=== PATIENT | male | born 2000 | race African-American/Black ===

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

== ENCOUNTER 2022-01-14 14:12 | Emergency (ER) | payer OTHER, SELFPAY ==
[2022-01-14 14:25] VITALS: BP 115/71; PULSE 66; RESP 16; TEMP 36.3; O2SAT 99
--- NOTE | 2022-01-14 15:04 | ED.GENADULT ---
HPI - General Adult General Chief complaint: Urogenital-Male Stated complaint: std testing Time Seen by Provider: 01/14/22 15:04 Source: patient Mode of arrival: ambulatory Limitations: no limitations History of Present Illness HPI narrative: 21-year-old male patient presents to the [facility] with complaints of burning with urination for the past 2 days. Patient states he last had sexual intercourse with his on and off girlfriend about a week ago. Patient states they were broken up for some time so he is not sure if maybe he would have gotten an STD from her. Patient states he has had an STD before. Patient denies any discharge coming from the penis. Denies any scrotal pain. Denies any fevers, body aches or chills. Denies any lesions to the penis. Related Data Allergies Allergy/AdvReac Type Severity Reaction Status Date / Time No Known Allergies Allergy Verified 01/14/22 14:22 Review of Systems Review of Systems: CONSTITUTIONAL: Denies fever, chills, or sweats. EYES: Denies visual changes, redness, or discharge. ENT: Denies rhinorrhea, congestion, sore throat, or otalgia. CARDIOVASCULAR: Denies chest pain, palpitations, or edema. RESPIRATORY: Denies cough or dyspnea. GASTROINTESTINAL: Denies abdominal pain, nausea, vomiting, or diarrhea. GENITOURINARY: Denies dysuria or hematuria. Pain with urination x2 days SKIN: Denies rash or itching. MUSCULOSKELETAL: Denies back pain, joint pain, or myalgia. NEUROLOGIC: Denies headache, numbness, or weakness. PSYCHIATRIC: Denies anxiety or depression. [facility] Past Medical History Medical History Fracture of phalanx of right little finger Surgical History Surgical History No history of previous surgery Social History Social History Smoking status: Never smoker Alcohol intake: current Alcohol use details: rare social Substance use: current Substance use type: marijuana Gender identity (if verbalized by the patient): Male Comments At the time of my signature I agree with nursing past medical history, surgical, social, and family history. There is no relevant family history pertinent to the presenting complaint. Exam Narrative: GENERAL: Well-appearing, well-nourished, and in no acute distress. HEAD: Normocephalic, atraumatic. EYES: PERRLA and EOMI. ENT: Nares clear, no rhinorrhea or epistaxis. Mucous membranes moist. NECK: Supple. No lymphadenopathy CHEST: Clear to auscultation. No respiratory distress. HEART: Regular rate and rhythm. No murmur heard. Normal peripheral pulses. ABDOMEN: Soft, nontender, nondistended, normal active bowel sounds. EXTREMITIES: Normal range of motion. No edema. SKIN: Warm, dry, no rash. NEURO: No focal deficits. Alert and oriented x3. Course Course Level of Care: Express Care Visit Vital Signs Vital signs: Vital Signs Temperature 36.3 C L 01/14/22 14:25 Pulse Rate 66 01/14/22 14:25 Respiratory Rate 16 01/14/22 14:25 Blood Pressure 115/71 01/14/22 14:25 Pulse Oximetry 99 01/14/22 14:25 Oxygen Delivery Room Air 01/14/22 14:25 Temperature 36.3 C L 01/14/22 14:25 Pulse Rate 66 01/14/22 14:25 Respiratory Rate 16 01/14/22 14:25 Blood Pressure 115/71 01/14/22 14:25 Pulse Oximetry 99 01/14/22 14:25 Oxygen Delivery Room Air 01/14/22 14:25 Vital signs reviewed. Medical Decision Making MDM Narrative Medical decision making narrative: Plan of care for patient is to obtain urine specimen and send off to lab for testing of gonorrhea, chlamydia and trichomonas. Since patient is having symptoms we will go ahead and start treatment today. Discussed with patient he should not engage in any sexual activities for the next 7 days after receiving medication. Discussed with patient that I highly recommend that he put use safe sex pra
[2022-01-14] MEDS: cefTRIAXone 500 MG, LIDOCAINE HCL 1% LOCAL INJ 1 ML IM (15:21)
== END 2022-01-14 15:45 | disposition home or self-care (01) ==
PROVIDERS: Emergency Provider Nurse Practitioner Family
DX: R30.0 Dysuria (principal); Z11.3 Encounter for screening for infections with a predominantly sexual mode of transmission
CPT/HCPCS: 81003; 87491; 87591; 87661; 96372; 99213; G0463; J0696

== ENCOUNTER 2022-11-14 09:49 | Emergency (ER) | payer OTHER, SELFPAY ==
[2022-11-14 09:57] VITALS: BP 124/63; PULSE 66; RESP 16; TEMP 36.4; O2SAT 100
[2022-11-14 09:58] VITALS: BP 124/63; PULSE 66; RESP 16; TEMP 36.4; O2SAT 100
--- NOTE | 2022-11-14 10:22 | ED.GENADULT ---
HPI - General Adult General Chief complaint: Upper Respiratory Infection Stated complaint: throat pain,throwing up Source: patient and RN notes reviewed History of Present Illness HPI narrative: 22-year-old male presents to urgent care with complaints of a sore throat x2 days. Patient states he also vomited 4 times this morning. Patient states the last time he vomited he noticed blood in his emesis. Patient is also reporting slight, bilateral, side pain. Denies any fevers, chills, chest pain, shortness of breath, ear pain congestion, abdominal pain, or dysuria. Patient is taking DayQuil at home. Related Data Home Medications Medication Instructions Recorded Confirmed hydroxyzine HCl 25 mg tablet mg 11/14/22 Allergies Allergy/AdvReac Type Severity Reaction Status Date / Time No Known Allergies Allergy Verified 11/14/22 09:58 Review of Systems Review of Systems: Pertinent positives and pertinent negatives per HPI. [facility], [facility] Past Medical History Medical History Fracture of phalanx of right little finger Surgical History Surgical History No history of previous surgery Social History Social History Smoking status: Never smoker Alcohol intake: current Alcohol use details: rare social Substance use: current Substance use type: marijuana Living arrangements: with family Gender identity (if verbalized by the patient): Male Comments At the time of my signature, I reviewed and agree with the nursing past medical, surgical, social, and family history. There is no relevant family history pertinent to the patient complaint. Exam Narrative: GENERAL: This is a well-nourished, well-developed patient, in no apparent distress. HEAD: normocephalic, atraumatic. EYES: Sclera clear/white. Vision is grossly intact. EARS: External ears normal, auditory canals clear and without drainage. Hearing grossly intact. NOSE: External nose normal with no obvious nasal discharge, nares without redness, no rhinorrhea. THROAT: Mucous membranes moist, posterior pharynx clear. NECK: Neck supple, non-tender without lymphadenopathy, masses or thyromegaly. CARDIOVASCULAR: Regular rate and rhythm without murmurs, gallops, or rubs. RESPIRATORY: Clear to auscultation. Breath sounds equal bilaterally. No wheezes, rales, or rhonchi. GASTROINTESTINAL: Abdomen soft, non-tender, nondistended. Bowel sounds are active. No hepato-splenomegaly, or palpable masses. No guarding. SKIN: warm, intact with no suspicious lesions or rash, good texture and turgor. NEURO: awake, alert, and oriented to person, place and time. There were no obvious focal neurologic abnormalities. EXTREMITIES: No clubbing, cyanosis, or edema. No joint tenderness, effusion, or edema noted. BACK: Nontender without deformity or crepitus. No flank tenderness. Course Course Level of Care: Express Care Visit Vital Signs Vital signs: Vital Signs Temperature 97.6 F 11/14/22 09:57 Pulse Rate 66 11/14/22 09:57 Respiratory Rate 16 11/14/22 09:57 Blood Pressure 124/63 11/14/22 09:57 Pulse Oximetry 100 11/14/22 09:57 Oxygen Delivery Room Air 11/14/22 09:57 Temperature 97.6 F 11/14/22 09:58 Pulse Rate 66 11/14/22 09:58 Respiratory Rate 16 11/14/22 09:58 Blood Pressure 124/63 11/14/22 09:58 Pulse Oximetry 100 11/14/22 09:58 Oxygen Delivery Room Air 11/14/22 09:58 reviewed Medical Decision Making MDM Narrative Medical decision making narrative: Rapid strep is negative in the office; however we will send to the lab for confirmation; there is a small percentage chance that it can come back positive; if it is, we will call you in 2-3days; and your prescription will be call in to your pharmacy. However, there is NO indication for antibiotic at this time. -Inc
== END 2022-11-14 10:27 | disposition home or self-care (01) ==
PROVIDERS: Emergency Provider Nurse Practitioner Family; PCP Emergency Medicine
DX: J02.9 Acute pharyngitis, unspecified (principal); A08.4 Viral intestinal infection, unspecified; F12.90 Cannabis use, unspecified, uncomplicated
CPT/HCPCS: 81003; 87081; 87880; 99213; G0463

== ENCOUNTER 2024-04-02 16:32 | Emergency (ER) | payer BC, SELFPAY ==
[2024-04-02 16:41] VITALS: BP 125/61; PULSE 75; RESP 16; TEMP 36.7; O2SAT 99
--- NOTE | 2024-04-02 16:55 | ED_ITS ---
HPI - Wound/Laceration General Chief Complaint: Wound/Laceration Stated Complaint: stitches 4 days ago, one of stitches came out toda Time Seen by Provider: 04/02/24 16:55 Source: patient Mode of arrival: ambulatory Limitations: no limitations History of Present Illness HPI narrative: 24 yo M here for wound check. Pt had sutures placed to laceration of L hand 4 days ago. One suture fell out. States other sutures seem too spaced out, wound opening and sutures look like they may fall out. No signs of infection. ROM and distal NV intact. Cut himself with knife when opening package. All systems reviewed and negative except as noted above. Related Data Home Medications ?Medication ?Instructions ?Recorded ?Confirmed ?Last Taken ?Type cephalexin 500 mg capsule mg 04/02/24 Unknown History naproxen 500 mg tablet mg 04/02/24 Unknown History Allergies Allergy/AdvReac Type Severity Reaction Status Date / Time No Known Allergies Allergy Verified 04/02/24 16:38 Review of Systems Review of Systems: CONSTITUTIONAL: Denies fever, chills, or sweats. EYES: Denies visual changes, redness, or discharge. ENT: Denies rhinorrhea, congestion, sore throat, or otalgia. CARDIOVASCULAR: Denies chest pain, palpitations, or edema. RESPIRATORY: Denies cough or dyspnea. GASTROINTESTINAL: Denies abdominal pain, nausea, vomiting, or diarrhea. GENITOURINARY: Denies dysuria or hematuria. SKIN: Denies rash or itching. laceration to left hand. MUSCULOSKELETAL: Denies back pain, joint pain, or myalgia. NEUROLOGIC: Denies headache, numbness, or weakness. PSYCHIATRIC: Denies anxiety or depression. All other systems reviewed are negative, except as documented in HPI. [facility] Past Medical History Medical History Fracture of phalanx of right little finger Surgical History Surgical History No history of previous surgery Social History Social History Smoking status: Never smoker Alcohol intake: current Alcohol use details: rare social Substance use: current Substance use type: marijuana Living arrangements: with family Gender identity (if verbalized by the patient): Male Comments At time of signature, agree with nursing past medical, surgical, social and family history. There is no relevant family history pertinent to the presenting complaint. Exam Narrative: GENERAL: This is a well-nourished, well-developed patient, in no apparent distress. HEAD: normocephalic, atraumatic. EYES: PERRL. Sclera clear/white. Vision is grossly intact. EARS: External ears normal NOSE: External nose normal NECK: Neck supple, non-tender without lymphadenopathy, masses or thyromegaly. CARDIOVASCULAR: Regular rate and rhythm without murmurs, gallops, or rubs. RESPIRATORY: Clear to auscultation. Breath sounds equal bilaterally. No wheezes, rales, or rhonchi. SKIN: warm, Dry, with no suspicious lesions or rash, good texture and turgor. healing laceration to posterior L hand, 1st metacarpal. sutures are spaced far apart with some wound dehiscence. NEURO: awake, alert, and oriented to person, place and time. There were no obvious focal neurologic abnormalities. EXTREMITIES: No joint tenderness, effusion, or edema noted. Course Course Level of Care: Express Care Visit Vital Signs Vital signs: Vital Signs Temperature 36.7 C 04/02/24 16:41 Pulse Rate 75 04/02/24 16:41 Respiratory Rate 16 04/02/24 16:41 Blood Pressure 125/61 04/02/24 16:41 Pulse Oximetry 99 04/02/24 16:41 Oxygen Delivery Room Air 04/02/24 16:41 Temperature 36.7 C 04/02/24 16:41 Pulse Rate 75 04/02/24 16:41 Respiratory Rate 16 04/02/24 16:41 Blood Pressure 125/61 04/02/24 16:41 Pulse Oximetry 99 04/02/24 16:41 Oxygen Delivery Room Air 04/02/24 16:41 Reviewed Procedures Laceration Laceration 1: Date: 04/02/24 Time: 17:00 Site: hand Side (If applicable): left Description: linear ====== Skin Level ====== Skin layer closed with: steri strips ====== Subcutaneous Layer ====== ====== Muscle Layer ====== ====== Tendon Layer ====== Dressing: a steri strip was placed where suture fell out and then between each suture to help with wound dehiscence. no signs of infection. MDM - Wound/Laceration MDM Narrative Medical decision making narrative: Patient is aware of diagnosis, understands and agrees to treatment plan. Anticipatory guidance given. Patient agrees to follow-up as directed and is aware of reasons to seek care at the emergency department. Portions of this record may have been created with voice recognition software Discharge Plan Discharge Clinical Impression: Laceration of hand, left Patient Disposition: Home, Self-Care Condition: Stable Instructions: Steristrips (ED) Additional Instructions: Keep steri strips clean and dry. If they become wet, pat dry with towel. Let them fall off on their own. Do not pick or pull at strips. Patient Language: Japanese Prescriptions: No Action cephalexin 500 mg capsule naproxen 500 mg tablet Follow-up/Referrals: Esvin Ervin MD [Primary Care Provider] - Time of Disposition: 17:08
== END 2024-04-02 17:15 | disposition home or self-care (01) ==
PROVIDERS: Emergency Provider Nurse Practitioner Family; PCP Emergency Medicine
DX: S61.412D Laceration without foreign body of left hand, subsequent encounter (principal); W26.0XXA Contact with knife, initial encounter; T81.30XA Disruption of wound, unspecified, initial encounter; L76.82 Other postprocedural complications of skin and subcutaneous tissue; F12.90 Cannabis use, unspecified, uncomplicated
CPT/HCPCS: 99212; G0463

== ENCOUNTER 2024-04-09 13:54 | Emergency (ER) | payer BC, SELFPAY ==
[2024-04-09 14:07] VITALS: BP 122/61; PULSE 72; RESP 16; TEMP 37; O2SAT 99
--- NOTE | 2024-04-09 14:10 | ED.WOUNDLAC ---
HPI - Wound/Laceration General Chief Complaint: Wound/Laceration Stated Complaint: suture removal Time Seen by Provider: 04/09/24 14:24 Source: patient and RN notes reviewed Mode of arrival: ambulatory Limitations: no limitations History of Present Illness HPI narrative: 24-year-old male presents concern for suture removal. Reports he had a laceration on left hand 11 days ago which she had sutures placed at [facility]. He reports he followed up [facility]. He denies any my redness, warmth, drainage from the incision, reports that it is healing well. He does reports some tingling in his thumb that he has a follow-up at [facility] for. Related Data Home Medications ?Medication ?Instructions ?Recorded ?Confirmed ?Last Taken ?Type cephalexin 500 mg capsule mg 04/02/24 Unknown History naproxen 500 mg tablet mg 04/02/24 Unknown History Allergies Allergy/AdvReac Type Severity Reaction Status Date / Time No Known Allergies Allergy Verified 04/02/24 16:38 Review of Systems Review of Systems: CONSTITUTIONAL: Denies malaise, chills, sweats, or fever. SKIN: Reports healing laceration to the left hand MUSCULOSKELETAL: Denies myalgia. NEUROLOGIC: Denies headache. Reports some tingling in the left 1st digit All systems reviewed & are unremarkable except as noted in HPI and below PMFSH Past Medical History Medical History Fracture of phalanx of right little finger Surgical History Surgical History No history of previous surgery Social History Social History Smoking status: Never smoker Alcohol intake: current Alcohol use details: rare social Substance use: current Substance use type: marijuana Living arrangements: with family Gender identity (if verbalized by the patient): Male Comments At time of signature, agree with nursing past medical, surgical, social and family history. There is no relevant family history pertinent to the presenting complaint Exam Narrative: GENERAL: Well-appearing, well-nourished, and in no acute distress. HEAD: Normocephalic, atraumatic. EYES: PERRLA, conjunctivae clear, and EOMI. ENT: Mucous membranes moist. NECK: Supple. No lymphadenopathy CHEST: Clear to auscultation. No respiratory distress. HEART: Regular rate and rhythm. SKIN: Warm, dry. Healed laceration to the left hand with 3 intact sutures NEURO: Alert and oriented x3. PSYCH: Normal mood and affect Course Course Emergency Course: Patient is aware of diagnosis, understands and agrees to treatment plan. Anticipatory guidance given. Patient agrees to follow-up as directed and is aware of reasons to seek care at the emergency department. Portions of this record may have been created with voice recognition software Level of Care: Express Care Visit Vital Signs Vital signs: Vital Signs Temperature 98.6 F 04/09/24 14:07 Pulse Rate 72 04/09/24 14:07 Respiratory Rate 16 04/09/24 14:07 Blood Pressure 122/61 04/09/24 14:07 Pulse Oximetry 99 04/09/24 14:07 Oxygen Delivery Room Air 04/09/24 14:07 Temperature 98.6 F 04/09/24 14:07 Pulse Rate 72 04/09/24 14:07 Respiratory Rate 16 04/09/24 14:07 Blood Pressure 122/61 04/09/24 14:07 Pulse Oximetry 99 04/09/24 14:07 Oxygen Delivery Room Air 04/09/24 14:07 Reviewed. MDM - Wound/Laceration MDM Narrative Medical decision making narrative: Verbal consent was obtained. Wound well approximated, no erythema, induration, or discharge noted. Three completely removed in a sterile fashion. Patient tolerated procedure well, no complications. Patient advised to look for and return for any signs of infection such as redness, swelling, discharge, or worsening pain. Lab Data Attestation: I reviewed the patient's lab results. Critical Care Time Critical Care Time Critical Care Time: No Discharge Plan Discharge Clinical Impression: Encounter for removal of sutures Patient Disposition: Home, Self-Care Condition: Stable Instructions: Stitches Removal (ED) Additional Instructions: AFTER the stitches are removed: Clean your wound as directed. Carefully wash your wound with soap and water. Pat the area dry with a clean towel. Protect your wound. Your wound can swell, bleed, or split open if it is stretched or bumped. You may need to wear a bandage that supports your wound until it is completely healed. How to minimize a scar: After sutures are removed, keep your scar out of the sun. Use sunblock if your wound is exposed to the sun. You may use OTC silicone pad and/or scar massage with ointment (for 10-15 min a day) after one month. Talk to your doctor if you think you are developing a keloid. Patient Language: Maldivian Prescriptions: No Action cephalexin 500 mg capsule naproxen 500 mg tablet Follow-up/Referrals: Esvin Ervin MD [Primary Care Provider] - Time of Disposition: 14:29
== END 2024-04-09 14:33 | disposition home or self-care (01) ==
PROVIDERS: Emergency Provider Nurse Practitioner; PCP Emergency Medicine
DX: S61.412D Laceration without foreign body of left hand, subsequent encounter (principal); X58.XXXD Exposure to other specified factors, subsequent encounter; F12.90 Cannabis use, unspecified, uncomplicated
CPT/HCPCS: 99211; 99212; G0463